=== PATIENT | male | born 1985 | race African-American/Black ===

== ENCOUNTER 2018-01-15 07:47 | Emergency (ER) | payer BC, OTHER ==
[~2018-01-15] VITALS: Ht 182.9 cm; Wt 93.0 kg
--- NOTE | ~2018-01-15 | EKG ---
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
[~2018-01-15 07:47] MED LIST: ALBUTEROL INHAL17 GM IH; ALBUTEROL SUL5 MG/M1 IH; BACTRIM DS TAB1 EACH PO; DOXYCYCLINE 10100 MG PO; FLOMAX0.4 MG PO; GUAIFENESIN DM1 EACH PO; HYDROCODONE-APA1 TA1 PO; MEDROLDOSEPACK PO; NOHOMEMEDICATIONS; NORCO 5-325 TA1 EACH PO; PHENERGAN 25 MG25 M1 PO; PREDNISONE50 MG PO; TORADOL 10 MG T10 MG PO
[2018-01-15 08:19] LABS: ABSOLUTE NEUTROPHILS 7.7 thou/uL (1.4-8.2); BASOPHILS 0.1 % (0.0-2.0); EOSINOPHILS 0.4 % (0.0-3.0); HEMATOCRIT 46.7 % (42.0-52.0); HEMOGLOBIN 15.9 gm/dL (14.0-18.0); LYMPHOCYTES 11.6 % (24.0-44.0); MCH 29.9 pg (26.0-34.0); MCHC 34.1 g/dL (28.0-37.0); MCV 87.7 fL (80.0-100.0); MONOCYTES 0.8 % (1.0-8.0); PLATELET COUNT 282 thou/uL (150-400); POLYS 87.1 % (36.0-66.0); RBC 5.33 mil/uL (4.50-6.00); WBC 8.9 thou/uL (4.0-11.0)
[2018-01-15 08:27] LABS: CREATININE 1.2 mg/dL (0.7-1.3); POTASSIUM 3.3 mmol/L (3.5-5.1)
[2018-01-15 08:32] LABS: ALBUMIN 4.3 g/dL (3.4-5.0); DIRECT BILIRUBIN 0.3 mg/dL (<0.1-0.3); TOTAL BILIRUBIN 1.3 mg/dL (<0.1-1.0); TOTAL PROTEIN 7.2 g/dL (6.4-8.2)
[2018-01-15] MEDS ORDERED: PRILOSEC 20 MG20 MG PO (09:34)
[2018-01-15] MEDS ORDERED: CARAFATE 1 GM TA1 G1 PO (09:34)
[2018-01-15 09:43] VITALS: BP 127/56
== END 2018-01-15 09:44 | disposition home or self-care (01) ==
LOC: ER 07:47
PROVIDERS: Emergency Medicine
DX: R10.13 Epigastric pain (principal); K59.00 Constipation, unspecified; J45.909 Unspecified asthma, uncomplicated; Z87.442 Personal history of urinary calculi

== ENCOUNTER 2018-04-22 01:27 | Emergency (ER) | payer BC, OTHER ==
[~2018-04-22] VITALS: Ht 180.3 cm; Wt 93.0 kg
[~2018-04-22 01:27] MED LIST changes: +CARAFATE 1 GM TA1 G1 PO; +PRILOSEC 20 MG20 MG PO
[2018-04-22] MEDS ORDERED: FLEXERIL PO (01:53)
[2018-04-22] MEDS ORDERED: ALEVE220 MG PO (01:53)
== END 2018-04-22 02:58 | disposition home or self-care (01) ==
LOC: ER 01:27
DX: M54.5 Low back pain (principal); J45.909 Unspecified asthma, uncomplicated

== ENCOUNTER 2018-08-25 23:46 | Emergency (ER) | payer BC, OTHER ==
[~2018-08-25] VITALS: Ht 182.9 cm; Wt 90.7 kg
[~2018-08-25 23:46] MED LIST changes: +ALEVE220 MG PO; +FLEXERIL PO
[2018-08-26] MEDS ORDERED: VENTOLIN HFA INH8 GM INH (00:02)
[2018-08-26] MEDS ORDERED: PROAIR HFA8.5 GM INH (01:05)
[2018-08-26] MEDS ORDERED: ZPAK PO (01:05)
== END 2018-08-26 01:20 | disposition home or self-care (01) ==
LOC: ER 23:46
DX: R05 Cough (principal); J45.909 Unspecified asthma, uncomplicated; Z87.442 Personal history of urinary calculi

== ENCOUNTER 2018-11-20 07:17 | Emergency (ER) | payer BC, OTHER ==
[~2018-11-20] VITALS: Ht 182.9 cm; Wt 93.0 kg
[~2018-11-20 07:17] MED LIST changes: +PROAIR HFA8.5 GM INH; +VENTOLIN HFA INH8 GM INH; +ZPAK PO
[2018-11-20] MEDS ORDERED: OMEPRAZOLE20 M2 PO (07:25)
[2018-11-20] MEDS ORDERED: CARAFATE 1 GM TA1 G1 PO ×2 (07:25→08:37)
[2018-11-20 07:58] LABS: URINE BILIRUBIN NEGATIVE (Negative); URINE BLOOD NEGATIVE (Negative); URINE CLARITY CLEAR; URINE COLOR YELLOW; URINE GLUCOSE-RANDOM* NEGATIVE (Negative); URINE KETONES NEGATIVE (Negative); URINE LEUKOCYTES-REFLEX NEGATIVE (Negative); URINE NITRITE-REFLEX NEGATIVE (Negative); URINE PROTEIN (DIPSTICK) NEGATIVE (Negative); URINE SPECIFIC GRAVITY <= 1.005 (1.005-1.035); URINE UROBILINOGEN 0.2 E.U./dl (0.2-1.0)
[2018-11-20 08:08] LABS: ABSOLUTE NEUTROPHILS 6.2 thou/uL (1.4-8.2); BASOPHILS 0.4 % (0.0-2.0); EOSINOPHILS 0.3 % (0.0-3.0); HEMATOCRIT 49.4 % (42.0-52.0); HEMOGLOBIN 16.7 gm/dL (14.0-18.0); LYMPHOCYTES 19.6 % (24.0-44.0); MCH 30.4 pg (26.0-34.0); MCHC 33.8 g/dL (28.0-37.0); MCV 89.7 fL (80.0-100.0); MONOCYTES 6.6 % (1.0-8.0); PLATELET COUNT 360 thou/uL (150-400); POLYS 73.1 % (36.0-66.0); RDW 14.3 % (10.5-14.5); WBC 8.5 thou/uL (4.0-11.0)
[2018-11-20 08:13] LABS: CALCIUM 8.9 mg/dL (8.5-10.1); POTASSIUM 3.7 mmol/L (3.5-5.1)
[2018-11-20 08:18] LABS: ALBUMIN 4.3 g/dL (3.4-5.0); TOTAL BILIRUBIN 0.6 mg/dL (<0.1-1.0); TOTAL PROTEIN 7.6 g/dL (6.4-8.2)
[2018-11-20 08:45] VITALS: BP 136/87
== END 2018-11-20 18:26 | disposition home or self-care (01) ==
LOC: ER 07:17
PROVIDERS: Emergency Medicine
DX: R10.13 Epigastric pain (principal); R19.7 Diarrhea, unspecified; J45.909 Unspecified asthma, uncomplicated; Z87.442 Personal history of urinary calculi

== ENCOUNTER 2018-12-14 01:22 | Emergency (ER) | payer BC, OTHER ==
[~2018-12-14] VITALS: Ht 182.9 cm; Wt 94.3 kg
[~2018-12-14 01:22] MED LIST changes: +OMEPRAZOLE20 M2 PO
[2018-12-14 01:56] LABS: ABSOLUTE NEUTROPHILS 5.1 thou/uL (1.4-8.2); BASOPHILS 0.4 % (0.0-2.0); EOSINOPHILS 1.1 % (0.0-3.0); HEMATOCRIT 49.8 % (42.0-52.0); HEMOGLOBIN 16.8 gm/dL (14.0-18.0); LYMPHOCYTES 30.1 % (24.0-44.0); MCH 30.1 pg (26.0-34.0); MCHC 33.8 g/dL (28.0-37.0); MONOCYTES 5.5 % (1.0-8.0); PLATELET COUNT 236 thou/uL (150-400); POLYS 62.9 % (36.0-66.0); RBC 5.59 mil/uL (4.50-6.00); RDW 13.6 % (10.5-14.5); WBC 8.2 thou/uL (4.0-11.0)
[2018-12-14 02:08] LABS: CALCIUM 8.9 mg/dL (8.5-10.1); CREATININE 0.9 mg/dL (0.7-1.3); POTASSIUM 3.5 mmol/L (3.5-5.1)
[2018-12-14] MEDS ORDERED: CARAFATE 1 GM TA1 G1 PO (02:24)
[2018-12-14] MEDS ORDERED: OMEPRAZOLE20 M2 PO (02:24)
[2018-12-14 02:41] VITALS: BP 117/81
== END 2018-12-14 02:42 | disposition home or self-care (01) ==
LOC: ER 01:22
PROVIDERS: Student in an Organized Health Care Education/Training Program
DX: R10.13 Epigastric pain (principal); J45.909 Unspecified asthma, uncomplicated; Z87.442 Personal history of urinary calculi

== ENCOUNTER 2019-09-27 11:00 | Emergency (ER) | payer BC, OTHER ==
[~2019-09-27] VITALS: Ht 182.9 cm; Wt 93.0 kg
[2019-09-27] MEDS ORDERED: LIDOCAINE PAIN1 EACH TOP (12:32)
[2019-09-27] MEDS ORDERED: CYCLOBENZAPRINE5 MG PO (12:32)
[2019-09-27] MEDS ORDERED: ULTRAM 50MG TAB50 MG PO (12:32)
[2019-09-27 12:49] VITALS: BP 134/82
== END 2019-09-27 12:49 | disposition home or self-care (01) ==
LOC: ER 11:00
DX: S16.1XXA Strain of muscle, fascia and tendon at neck level, initial encounter (principal); S09.8XXA Other specified injuries of head, initial encounter; J45.909 Unspecified asthma, uncomplicated; Z87.442 Personal history of urinary calculi; V49.49XA Driver injured in collision with other motor vehicles in traffic accident, initial encounter; Y92.89 Other specified places as the place of occurrence of the external cause; Y93.89 Activity, other specified; Y99.8 Other external cause status

== ENCOUNTER → 2019-10-09 | Outpatient (CLI) | payer BC, OTHER ==
[~2019-10-09] MED LIST changes: +CYCLOBENZAPRINE5 MG PO; +LIDOCAINE PAIN1 EACH TOP; +ULTRAM 50MG TAB50 MG PO
== END ==
LOC: CAT 10:35
DX: R51 Headache (principal); V89.2XXA Person injured in unspecified motor-vehicle accident, traffic, initial encounter

== ENCOUNTER 2020-01-19 18:01 | Emergency (ER) | payer BC, OTHER ==
[~2020-01-19] VITALS: Ht 182.9 cm; Wt 95.3 kg
[2020-01-19 18:43] LABS: ABSOLUTE NEUTROPHILS 9.7 thou/uL (1.4-8.2); BASOPHILS 0.8 % (0.0-2.0); EOSINOPHILS 1.1 % (0.0-3.0); HEMATOCRIT 52.2 % (42.0-52.0); HEMOGLOBIN 17.4 gm/dL (14.0-18.0); LYMPHOCYTES 3.2 % (24.0-44.0); MCH 29.8 pg (26.0-34.0); MCHC 33.2 g/dL (28.0-37.0); MCV 89.7 fL (80.0-100.0); MONOCYTES 5.6 % (1.0-8.0); PLATELET COUNT 260 thou/uL (150-400); POLYS 89.3 % (36.0-66.0); RBC 5.82 mil/uL (4.50-6.00); RDW 14.5 % (10.5-14.5); WBC 10.9 thou/uL (4.0-11.0)
[2020-01-19 18:47] LABS: URINE BLOOD NEGATIVE (Negative); URINE CLARITY CLEAR; URINE COLOR YELLOW; URINE GLUCOSE-RANDOM* NEGATIVE (Negative); URINE KETONES TRACE (Negative); URINE LEUKOCYTES-REFLEX NEGATIVE (Negative); URINE PROTEIN (DIPSTICK) NEGATIVE (Negative); URINE SPECIFIC GRAVITY >= 1.030 (1.005-1.035); URINE UROBILINOGEN 0.2 E.U./dl (0.2-1.0)
[2020-01-19 18:51] LABS: ICTOTEST (BILI CONFIRMATORY) Negative (Negative); URINE BILIRUBIN NEGATIVE (Negative); URINE NITRITE-REFLEX POSITIVE (Negative)
[2020-01-19 18:58] LABS: CALCIUM 8.5 mg/dL (8.5-10.1); CREATININE 1.2 mg/dL (0.7-1.3); POTASSIUM 4.3 mmol/L (3.5-5.1)
[2020-01-19 19:00] LABS: MUCUS >6 Heavy strn/LPF (None Seen)
[2020-01-19 19:01] LABS: SQUAMOUS None Seen /LPF (0-3)
[2020-01-19 19:02] LABS: BACTERIA-REFLEX None Seen /HPF (None Seen); CASTS None Seen /LPF (None Seen); CRYSTALS None Seen /LPF (None Seen); URINE RBC None Seen /HPF (0-2); URINE WBC-REFLEX 0-5 Rare /HPF (0-5)
[2020-01-19 19:04] LABS: ALBUMIN 3.9 g/dL (3.4-5.0); TOTAL BILIRUBIN 0.6 mg/dL (<0.1-1.0); TOTAL PROTEIN 7.3 g/dL (6.4-8.2)
[2020-01-19] MEDS ORDERED: BENTYL 20 MG TA20 M1 PO (19:34)
[2020-01-19] MEDS ORDERED: ZOFRAN ODT4 MG PO (19:34)
[2020-01-19] MEDS ORDERED: IMODIUM A-D2 MG PO (19:34)
[2020-01-19 20:02] VITALS: BP 122/71
--- NOTE | 2020-01-20 08:41 | EKG ---
[facility] [place] [address] ELECTROCARDIOGRAM REPORT Name: JOSE LUIS GARCIA Room #: DEP [facility]#: [id number] Admission: 01/19/20 Attend Phys: Discharge: 01/19/20 Date of : 87 Report #: [id number] THIS REPORT FOR: cc: Heriberto Walker James A. DO Lundgren, Craig H. 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
== END 2020-01-19 20:03 | disposition home or self-care (01) ==
LOC: ER 18:01
PROVIDERS: Emergency Medicine
DX: K52.89 Other specified noninfective gastroenteritis and colitis (principal); J45.909 Unspecified asthma, uncomplicated